=== PATIENT | female | born 1955 ===

== ENCOUNTER 2019-08-21 05:47 | Day surgery (SDC) | payer OTHER ==
[~2019-08-21 05:47] MED LIST: COZAAR50 MG PO; MELOXICAM15 MG PO; OMEPRAZOLE MAGN20 MG PO; RESTORIL30 M1 PO; SYNTHROID50 MCG PO; TOPROL XL25 M1 PO
[2019-08-21] MEDS ORDERED: COLACE100 MG PO (11:22)
[2019-08-21] MEDS ORDERED: PERCOCET 5-3251 EACH PO (11:22)
[2019-08-21] MEDS ORDERED: INTESTINEX680 M1 PO (11:23)
[2019-08-21] MEDS ORDERED: AMOX1TAB5 PO (11:23)
== END 2019-08-21 15:40 | disposition home or self-care (01) ==
LOC: CIR.AMB 05:47
DX: K62.4 Stenosis of anus and rectum (principal)

== ENCOUNTER 2019-12-18 06:23 | Day surgery (SDC) | payer OTHER ==
[~2019-12-18 06:23] MED LIST changes: +AMOX1TAB5 PO; +COLACE100 MG PO; +INTESTINEX680 M1 PO; +PERCOCET 5-3251 EACH PO
[2019-12-18] MEDS ORDERED: ULTRACET PO (10:19)
== END 2019-12-18 12:15 | disposition home or self-care (01) ==
LOC: CIR.AMB 06:23
PROVIDERS: ATTEND Surgery
DX: R15.9 Full incontinence of feces (principal); Z20.828 Contact with and (suspected) exposure to other viral communicable diseases
CPT/HCPCS: 64581; C1778

== ENCOUNTER 2020-01-08 06:15 | Day surgery (SDC) | payer OTHER ==
[~2020-01-08 06:15] MED LIST changes: +ULTRACET PO
[2020-01-08] MEDS ORDERED: ULTRACET PO (14:05)
== END 2020-01-08 16:40 | disposition home or self-care (01) ==
LOC: CIR.AMB 06:15
PROVIDERS: ATTEND Surgery
DX: R15.9 Full incontinence of feces (principal)
CPT/HCPCS: 64590; 95972; L8679